=== PATIENT | female | born 1980 | race Caucasian/White ===

== ENCOUNTER → 2020-08-04 | Outpatient (CLI) | payer BC ==
--- NOTE | 2020-08-04 16:02 | RAD ---
EXAM: Left shoulder, 3 views. HISTORY: Pain. Limited range of motion. COMPARISON: None. FINDINGS: 3 views of left shoulder obtained. There is no fracture, dislocation or subluxation. There is calcification adjacent to the greater tuberosity at the rotator cuff insertion, suggesting calcifi c tendinitis. IMPRESSION: 1. No acute osseous finding. 2. Suspected distal rotator cuff calcific tendinitis. Electronically signed by: Disha Jean MD (08/04/2020 3:59 PM) [id number]
== END ==
LOC: RAD 15:46
PROVIDERS: ATTEND Orthopaedic Surgery
DX: M25.512 Pain in left shoulder (principal)
CPT/HCPCS: 73030